=== PATIENT | female | born 1980 | race Caucasian/White ===

== ENCOUNTER → 2020-08-26 13:32 | Outpatient (BNVA) | payer OTHER, SELFPAY | PROVIDERS: PCP Internal Medicine; Visit Provider Internal Medicine Endocrinology, Diabetes & Metabolism ==

== ENCOUNTER 2020-10-02 15:41 | Outpatient (REF) | payer OTHER, SELFPAY ==
--- NOTE | ~2020-10-02 | CT_ITS ---
EXAMINATION: CT HEAD WITHOUT CONTRAST CLINICAL INFORMATION: Migraine with aura. COMPARISON: None TECHNIQUE: Contiguous axial imaging was performed from the skull base to vertex without intravenous administration of contrast. This CT examination was performed using dose optimization techniques as appropriate, variously including the following: *Automated exposure control *Adjustment of mA and/or kV according to patient size (this includes techniques or standardized protocols for targeted exams where dose is matched to indication/reason for exam; i.e. extremities or head) *Use of iterative reconstruction technique DLP: 832 mGy-cm FINDINGS: There is no evidence of acute intracranial hemorrhage or territorial infarction. No abnormal mass effect or midline shift is seen. [place] to white matter differentiation is well preserved. No extra-axial fluid collections are identified. The ventricles are normal in size. There is no abnormal attenuation within the brain parenchyma. The osseous structures and soft tissues are normal. The mastoid air cells and visualized portions of the paranasal sinuses are well aerated. CT/CT head/brain wo IV con IMPRESSION: No acute intracranial pathology. Normal CT scan of the head.
== END 2020-10-02 15:42 | disposition home or self-care (01) ==
LOC: HO.CT 15:41
PROVIDERS: PCP Internal Medicine; Visit Provider Physician Assistant
DX: G43.109 Migraine with aura, not intractable, without status migrainosus (principal); R07.89 Other chest pain
CPT/HCPCS: 70450

== ENCOUNTER 2020-10-06 14:26 | Outpatient (REF) | payer OTHER, SELFPAY ==
[2020-10-06 18:55] LABS: Alanine Aminotransferase 17 U/L (0-31); Albumin Level 4.8 g/dL (3.5-5.0); Alkaline Phosphatase 69 U/L (39-117); Anion Gap 16 (12-20); Aspartate Amino Transferase 12 U/L (5-31); Bilirubin Total 0.9 mg/dL (0.0-1.0); Blood Urea Nitrogen 10 mg/dL (9-16); Calcium 9.7 mg/dL (8.4-10.2); Carbon Dioxide 28 mmol/L (22-29); Chloride 100 mmol/L (96-108); Estimated Glomerular Filt Rate > 60; Glucose Random 115 mg/dL (60-115); Magnesium 1.6 mg/dL (1.6-2.6); Potassium 3.1 mmol/L (3.3-5.1); Sodium 141 mmol/L (135-145); Total Protein 7.5 g/dL (6.5-8.0)
[2020-10-06 19:15] LABS: Free T4 (Free Thyroxine) 1.05 ng/dL (0.71-1.85); Thyroid Stimulating Hormone 1.03 uIU/mL (0.32-4.0)
[2020-10-07 06:48] LABS: Estimated Average Glucose 103 mg/dL; Hemoglobin A1c % 5.2 %
[2020-10-08 12:44] LABS: Lyme Abs Screen <0.90 index
== END 2020-10-06 14:27 | disposition home or self-care (01) ==
LOC: HO.MANLDS 14:26
PROVIDERS: PCP Internal Medicine; Visit Provider Physician Assistant
DX: R73.01 Impaired fasting glucose (principal); R53.83 Other fatigue; E83.42 Hypomagnesemia
CPT/HCPCS: 36415; 80053; 83036; 83735; 84439; 84443; 86617; 86618

== ENCOUNTER 2020-10-20 16:07 | Outpatient (REF) | payer OTHER, SELFPAY ==
[2020-10-20 19:30] LABS: Anion Gap 15 (12-20); Blood Urea Nitrogen 15 mg/dL (9-16); Carbon Dioxide 25 mmol/L (22-29); Chloride 104 mmol/L (96-108); Estimated Glomerular Filt Rate > 60; Glucose Random 73 mg/dL (60-115); Potassium 3.6 mmol/L (3.3-5.1); Sodium 140 mmol/L (135-145)
== END 2020-10-20 16:08 | disposition home or self-care (01) ==
LOC: HO.MANLDS 16:07
PROVIDERS: PCP Internal Medicine; Visit Provider Internal Medicine
DX: I10 Essential (primary) hypertension (principal)
CPT/HCPCS: 36415; 80048

== ENCOUNTER 2020-10-30 11:53 | Emergency (ER) | payer OTHER, SELFPAY ==
[2020-10-30 13:44] VITALS: BP 134/91; PULSE 87; RESP 18; TEMP 37; O2SAT 98; BMI 44.1
--- NOTE | 2020-10-30 13:47 | ECG_ITS ---
Test Reason : CHEST PAIN Blood Pressure : / mmHG Vent. Rate : 084 BPM Atrial Rate : 084 BPM P-R Int : 150 ms QRS Dur : 082 ms QT Int : 386 ms P-R-T Axes : 024 -45 023 degrees QTc Int : 456 ms Normal sinus rhythm Left anterior fascicular block Abnormal ECG No previous ECGs available Referred By: Generic ED Physician Electronically Signed By:Luciano Agustin
[2020-10-30 14:24] LABS: MANUAL DIFF FLAG NO
[2020-10-30 14:33] LABS: Basophils Percent Auto 0.3 % (0-2); Eosinophils Percent Auto 0.1 % (0-4); Hematocrit 38.2 % (37-47); Hemoglobin 13.6 g/dl (12.0-16.0); Imm Gran Abs Auto 0.09 X10*3/uL (0.00-0.03); Imm Gran Pct Auto 0.9 % (0.0-0.4); Lymphocytes Absolute Auto 1.3 X10*3/uL (1.2-4.9); Lymphocytes Percent Auto 12.7 % (20-40); Mean Corpuscular HGB Conc 35.6 g/dl (31.0-35.0); Mean Corpuscular Volume 84.3 fL (80-98); Mean Platelet Volume 9.5 fL (9.4-12.3); Monocytes Absolute Auto 0.4 X10*3/uL (0.1-1.2); Monocytes Percent Auto 3.9 % (2-11); Neutrophils Absolute Auto 8.7 X10*3/uL (2.0-8.3); Neutrophils Percent Auto 82.1 % (45-73); Platelet Count 239 X10*3/uL (160-400); Red Blood Count 4.53 X10*6/uL (4.20-5.50); Red Cell Distribution Width 12.4 % (11.0-16.0); White Blood Count 10.5 X10*3/uL (4.8-10.8)
[2020-10-30 14:59] LABS: Alanine Aminotransferase 26 U/L (0-31); Albumin Level 4.4 g/dL (3.5-5.0); Alkaline Phosphatase 61 U/L (39-117); Anion Gap 15 (12-20); Aspartate Amino Transferase 20 U/L (5-31); Bilirubin Direct 0.3 mg/dL (0.0-0.5); Blood Urea Nitrogen 12 mg/dL (9-16); Carbon Dioxide 25 mmol/L (22-29); Chloride 107 mmol/L (96-108); Creatinine Clr Calc Pharmacy 107.7; Estimated Glomerular Filt Rate > 60; Glucose Random 122 mg/dL (60-115); Lipase 24 U/L (8-78); Potassium 4.2 mmol/L (3.3-5.1); Sodium 143 mmol/L (135-145); Total Protein 6.8 g/dL (6.5-8.0)
[2020-10-30 18:13] LABS: Glucose, Whole Blood 129 mg/dL (60-115)
--- NOTE | 2020-10-30 19:00 | ED.GENADULT ---
HPI - General Adult General Chief complaint: Nausea/Vomiting/Diarrhea Stated complaint: Chest Pain Time Seen by Provider: 10/30/20 18:47 Source: patient Mode of arrival: ambulatory Limitations: no limitations History of Present Illness HPI narrative: Patient comes emergency room with multiple complaints. Patient states that she has been vomiting for 2 days. Patient states she has been unable to keep any fluids down. Therefore, patient has not been able to keep down her meds as well including her blood pressure medications. Patient reports a blood pressure at home of 173/129 right after she vomited. On arrival to triage, blood pressure is 134/91. Patient complaining of a migraine headache. Patient states she use Phenergan suppositories without relief. Patient also complaining of chest pressure Related Data Home Medications Medication Instructions Recorded Confirmed metoprolol tartrate 25 mg tablet 50 mg PO DAILY tab 08/26/20 08/26/20 pregabalin 200 mg capsule 200 mg PO TID 08/26/20 08/26/20 Previous Rx's Medication Instructions Recorded ondansetron HCl [Zofran] 4 mg PO Q6H PRN #14 tab 10/30/20 Allergies Allergy/AdvReac Type Severity Reaction Status Date / Time codeine Allergy Unknown Anaphylaxis Verified 10/30/20 13:44 Penicillins [PCN] Allergy Unknown ANAPHYLAXIS Verified 10/30/20 13:44 Sulfa (Sulfonamide Allergy Unknown ANAPHYLAXIS Verified 10/30/20 13:44 Antibiotics) [SULFA (SULFONAMIDE ANTIBIOTICS)] [facility], LAT[facility] Past Medical History Medical History (Updated 10/30/20 @ 23:13 by Lisa Oakley MD) Acute Lyme disease [place]'s disease Morbid obesity Surgical History (Updated 08/26/20 @ 12:01 by GOLDIE Clifton) History of back surgery Hx of cholecystectomy Hx of discectomy Hx of hysterectomy Hx of tonsillectomy Hx of tubal ligation S/P wisdom tooth extraction Family History Family History (Updated 08/26/20 @ 11:56 by GOLDIE Clifton) Father No problems noted. Mother Asthma Fibromyalgia Arthritis of knee Social History Social History (Updated 08/26/20 @ 11:50 by GOLDIE Clifton) Household Members: Family Alcohol intake: never Patient Tobacco Use Status: Never used Tobacco Use of substances other than those prescribed or required for medical reasons: No Advance Directives: Yes Advance Directives Information Provided: Yes Advance Directives on File: No Patient : No Physical Exam Vital Signs: Vital Signs: Last Vital Signs Temp 98.6 F 10/30/20 13:44 Pulse 78 10/30/20 21:23 Resp 16 10/30/20 21:23 BP 130/84 10/30/20 21:23 Pulse Ox 98 10/30/20 21:23 Body Mass Index 44.1 Course Course Course Narrative: I discussed the labs with the patient. Is likely that patient's symptoms are due to a viral syndrome, versus I am disease for which she is being treated, versus opiate withdrawal. Patient receive her home dose of opioids here in the ED, patient received IV hydration and antiemetic medication. Patient states she feels better. Patient was p.o. challenged and did well. Blood pressure on discharge 130/84, rate 78 Medical Decision Making Lab Data Result diagrams: 10/30/20 14:19 10/30/20 14:19 Labs: Lab Results 10/30/20 10/30/20 10/30/20 Range/Units 14:15 14:19 14:19 WBC 10.5 (4.8-10.8) X10*3/uL RBC 4.53 (4.20-5.50) X10*6/uL Hgb 13.6 (12.0-16.0) g/dl Hct 38.2 (37-47) % MCV 84.3 (80-98) fL MCH 30.0 (27.0-33.0) pg MCHC 35.6 H (31.0-35.0) g/dl RDW 12.4 (11.0-16.0) % Plt Count 239 (160-400) X10*3/uL MPV 9.5 (9.4-12.3) fL Immature Gran % (Auto) 0.9 H (0.0-0.4) % Neut % (Auto) 82.1 H (45-73) % Lymph % (Auto) 12.7 L (20-40) % [place] % (Auto) 3.9 (2-11) % Eos % (Auto) 0.1 (0-4) % Baso % (Auto) 0.3 (0-2) % Lymph # (Auto) 1.3 (1.2-4.9) X10*3/uL [place] # (Auto) 0.4 (0.1-1.2) X10*3/uL Eos # (Auto) 0.0 (0.0-0.4) X10*3/uL Baso # (Auto) 0.0 (0.0-0.2) X10*3/uL Abs Immat Gran (auto) 0.09 H (0.00-0.03) X10*3/uL Absolute Neuts (auto) 8.7 H (2.0-8.3) X10*3/uL Absolute Nucleated RBC 0.000 (0.0-0.012) X10*3/uL Nucleated RBC % (auto) 0.0 (0.0-0.2) /100WBC Sodium 143 (135-145) mmol/L Potassium 4.2 (3.3-5.1) mmol/L Chloride 107 (96-108) mmol/L Carbon Dioxide 25 (22-29) mmol/L Anion Gap 15 (12-20) BUN 12 (9-16) mg/dL Creatinine 0.92 (0.5-1.4) mg/dL Estim Creat Clear Calc 107.7 Estimated GFR > 60 POC Glucose 129 H (60-115) mg/dL Random Glucose 122 H D (60-115) mg/dL Calcium 10.0 D (8.4-10.2) mg/dL Total Bilirubin 1.0 (0.0-1.0) mg/dL Direct Bilirubin 0.3 (0.0-0.5) mg/dL AST 20 D (5-31) U/L ALT 26 (0-31) U/L Alkaline Phosphatase 61 (39-117) U/L Troponin I High Sens (<3.5-17.0) ng/L Total Protein 6.8 (6.5-8.0) g/dL Albumin 4.4 (3.5-5.0) g/dL Lipase 24 (8-78) U/L Urine Color Urine Appearance Urine pH (5.0-8.0) Ur Specific Malin (1.005-1.025) Urine Protein (NEG-TRACE) MG/DL Urine Glucose (UA) (NEG) MG/DL Urine Ketones (NEG) MG/DL Urine Blood (NEG) Urine Nitrite (NEG) Ur Leukocyte Esterase (NEG) Urine Test (NEGATIVE) 10/30/20 10/30/20 10/30/20 Range/Units 14:19 22:41 22:41 WBC (4.8-10.8) X10*3/uL RBC (4.20-5.50) X10*6/uL Hgb (12.0-16.0) g/dl Hct (37-47) % MCV (80-98) fL MCH (27.0-33.0) pg MCHC (31.0-35.0) g/dl RDW (11.0-16.0) % Plt Count (160-400) X10*3/uL MPV (9.4-12.3) fL Immature Gran % (Auto) (0.0-0.4) % Neut % (Auto) (45-73) % Lymph % (Auto) (20-40) % [place] % (Auto) (2-11) % Eos % (Auto) (0-4) % Baso % (Auto) (0-2) % Lymph # (Auto) (1.2-4.9) X10*3/uL [place] # (Auto) (0.1-1.2) X10*3/uL Eos # (Auto) (0.0-0.4) X10*3/uL Baso # (Auto) (0.0-0.2) X10*3/uL Abs Immat Gran (auto) (0.00-0.03) X10*3/uL Absolute Neuts (auto) (2.0-8.3) X10*3/uL Absolute Nucleated RBC (0.0-0.012) X10*3/uL Nucleated RBC % (auto) (0.0-0.2) /100WBC Sodium (135-145) mmol/L Potassium (3.3-5.1) mmol/L Chloride (96-108) mmol/L Carbon Dioxide (22-29) mmol/L Anion Gap (12-20) BUN (9-16) mg/dL Creatinine (0.5-1.4) mg/dL Estim Creat Clear Calc Estimated GFR POC Glucose (60-115) mg/dL Random Glucose (60-115) mg/dL Calcium (8.4-10.2) mg/dL Total Bilirubin (0.0-1.0) mg/dL Direct Bilirubin (0.0-0.5) mg/dL AST (5-31) U/L ALT (0-31) U/L Alkaline Phosphatase (39-117) U/L Troponin I High Sens < 3.5 (<3.5-17.0) ng/L Total Protein (6.5-8.0) g/dL Albumin (3.5-5.0) g/dL Lipase (8-78) U/L Urine Color DARK YELLOW Urine Appearance CLEAR Urine pH 6.0 (5.0-8.0) Ur Specific Malin >= 1.030 H (1.005-1.025) Urine Protein NEG (NEG-TRACE) MG/DL Urine Glucose (UA) NEG (NEG) MG/DL Urine Ketones 15 (NEG) MG/DL Urine Blood NEG (NEG) Urine Nitrite NEG (NEG) Ur Leukocyte Esterase NEG (NEG) Urine Test NEGATIVE (NEGATIVE) ECG Data Attestation: I personally reviewed and interpreted this ECG as follows: (Normal sinus rhythm, heart rate 84, no ST segment depression or elevation, to inversion, QTC 456) Discharge Plan Discharge Clinical Impression: Vomiting, Opiate withdrawal Patient Disposition: Home, Self-Care Instructions: Acute Nausea and Vomiting (ED), Opioid Withdrawal (ED) Additional Instructions: Continue taking your antibiotics as indicated. Make sure you drink a full glass of water after swallowing the antibiotic. Please follow-up with your primary care physician tomorrow. If you have any worsening or new symptoms, please return to the emergency room or call 911 Prescriptions: New ondansetron HCl [Zofran] 4 mg tablet 4 mg PO Q6H PRN (Reason: nausea and vomiting) Qty: 14 RF: 0 No Action pregabalin 200 mg capsule 200 mg PO TID RF: 0 metoprolol tartrate 25 mg tablet 50 mg PO DAILY RF: 0
[2020-10-30 20:05] LABS: Troponin-I High Sensitivity < 3.5 ng/L (<3.5-17.0)
[2020-10-30 20:23] VITALS: BP 134/88; PULSE 78; RESP 16; O2SAT 95
[2020-10-30 20:50] VITALS: RESP 16
[2020-10-30] MEDS: Morphine Sulfate 4 MG/ML CARTRIDGE IVPUSH (20:50)
[2020-10-30] MEDS: 0.9 % Sodium Chloride 1,000 ML 999 ML IVCONT (20:52)
[2020-10-30] MEDS: Metoclopramide HCl 10 MG/2 ML VIAL IVPUSH (20:54)
[2020-10-30] MEDS: Prochlorperazine Edisylate 10 MG/2 ML VIAL IVPUSH (20:56)
[2020-10-30] MEDS: Aspirin Enteric Coated 325 MG TABLET.DR PO (20:57)
[2020-10-30 21:22] VITALS: BP 130/84; PULSE 78; RESP 16
[2020-10-30 21:23] VITALS: BP 130/84; PULSE 78; RESP 16; O2SAT 98
--- NOTE | 2020-10-30 22:47 | PC.NURSE ---
PT UPRIGHT IN BED, SUCCESSFUL PO CHALLENGE, PT IN NAD, AWAITING LAB RESULTS AND DISPO.
[2020-10-30 22:49] LABS: Glucose Urine UA NEG (NEG); Leukocyte Esterase Urine NEG (NEG); Nitrite Urine NEG (NEG); Specific Gravity - Urine >= 1.030 (1.005-1.025); Urine Blood NEG (NEG); Urine Ketones 15 MG/DL (NEG); Urine Protein NEG (NEG-TRACE)
[2020-10-30 22:55] LABS: Appearance Urine CLEAR; Color Urine DARK YELLOW
[2020-10-30 22:56] LABS: UPreg QC Valid YES; Urine Pregnancy NEGATIVE (NEGATIVE)
[2020-10-30] MEDS: oxyCODONE HCl Immed Release 15 MG TABLET 20 MG PO (23:37)
[2020-11-01 00:24] LABS: Glucose, Whole Blood 104 mg/dL (60-115)
== END 2020-10-30 23:30 | disposition home or self-care (01) ==
PROVIDERS: Emergency Provider Emergency Medicine; PCP Internal Medicine
DX: R11.10 Vomiting, unspecified (principal); F11.93 Opioid use, unspecified with withdrawal
CPT/HCPCS: 36415; 80048; 80076; 81003; 81025; 82947; 83690; 84484; 85025; 93005; 96361; 96374; 96375; 99284; 99285; J2270; J2765

== ENCOUNTER → 2020-11-19 08:30 | Outpatient (REF) | payer OTHER, SELFPAY ==
--- NOTE | 2020-11-19 08:33 | CA_ITS ---
Transthoracic Echocardiogram Patient (Last, First, Middle): Cayla Mendoza C Gender: Female Date of : 1980 Age: 40 Procedure Date: 11/19/2020 Procedure Type: Transthoracic Echocardiogram Location: OP Height: 165.1 cm Weight: 115.21 kg BSA: 2.19 m2 Heart Rate: bpm BP: 106 / 68 mmHg Inspector Watch Assembly: JEET Lane MD: Peg ARANA Sand Blaster: Jose Lundberg MD Symptoms: [id number] Study Quality: Good ECG Rhythm: Sinus Conclusions: - Normal study Findings Left Ventricle Normal left ventricular size, thickness, and systolic function. The visually estimated ejection fraction is between 60-65%. Diastolic function is normal for age. Right Ventricle Normal right ventricular cavity size and systolic function. Atria Both atria are normal in size. There is no evidence of interatrial shunt. Aortic Valve Normal aortic valve structure and function. There is no aortic valve stenosis. There is no aortic valve regurgitation. Mitral Valve Normal mitral valve structure and function. There is no mitral valve regurgitation. There is no mitral valve stenosis. Pulmonic Valve The pulmonic valve is likely normal. There is trace pulmonic valve regurgitation. Tricuspid Valve Normal tricuspid valve structure. There is trace tricuspid valve regurgitation. The right ventricular systolic pressure is normal. The right ventricular systolic pressure is 25 mmHg. Normal right atrial pressure. There is no evidence of pulmonary hypertension. Great Vessels All visible segments of the aorta are normal in size. The pulmonary artery was not well visualized. Venous The inferior vena cava is normal in size and collapses greater than 50% with inspiration. Pericardium/Pleural There is no evidence of pericardial effusion. Prior Study Comparison No prior study available for comparison. Measurements 2D Linear Measurements RVIDd: 2.45 RVIDd Index: 1.12 IVSd: 1.13 0.6-0.9/0.6-1.0 cm LVIDd: 5.10 3.9-5.3/4.2-5.9 cm LVIDd Index: 2.33 2.4-3.2/2.2-3.1 cm/m2 LVIDs: 3.13 2.0-3.6 cm LVPWd: 1.19 0.7-1.1 cm Ao Root: 3.20 2.1-3.5 cm LA Diam: 3.50 2.7-3.8/3.0-4.0 cm LAIDs Index: 1.60 1.5-2.3 cm/m2 LV Mass: 286.90 67-162/88-224 g LV Mass Index: 131.01 43-95/49-115 g/m2 LVOT Diam: 2.30 3.0+(-)1.3 cm 2D Systolic Function EF 4C: 63.80 >55% EF 2C: 67.40 >55% EF BiP: 64.20 >55% Mitral Valve MV Pk E: 0.69 MV PK A: 0.58 MV Decel Time: 180.00 E/A: 1.20 E'Lateral: 12.70 E'Medial: 7.29 E/E' Med: 9.50 E/E' Lat: 5.40 Aortic Valve AoV Pk Crispin: 1.32 AoV Mn Crispin: 1.01 AoV VTI: 0.27 AoV Pk Grad: 7.00 Aov Mn Grad: 4.00 PA Cont.VTI: 3.41 LVOT LVOT Pk Crispin: 1.08 LVOT Mn Crispin: 0.77 LVOT VTI: 0.22 LVOT Pk Grad: 5.00 LVOT Mn Grad: 3.00 LVOT Diam: 2.30 LVOT Area: 4.15 Diastolic Function MV Pk E: 0.69 MV Pk A: 0.58 E/A: 1.20 E'Medial: 7.29 E/E' Med: 9.50 E' Laterial: 12.70 E/E' Lat: 5.40 Tricuspid Valve TR Pk Crispin: 2.35 TR Pk Grad: 22.00 RA Press: 3.00 RVSP: 25.00 Great Vessels Aorta Ao Root-2D: 3.20 2.0-3.7 cm Ao Asc: 3.30 2.1-3.4 cm Ao Arch: 2.60 Updated in Other Vendor System with Status of Final Jose Lundberg MD electronically signed on 11/19/2020 5:42:41 PM with status of Final
--- NOTE | 2020-11-19 08:34 | CA_ITS ---
Acquisition Time: 2020-11-19 09:27:53 Total Exercise Time: 00:06:25 Test Indications: CP, Medications: SEE CHART Protocol: COLBY Max HR: 136 BPM 74% of Pred: 182 BPM Max BP: 120/090 mmHG Max Work Load: 7.6 METS Exercise stress test with exercise 6 min 25 sec of Colby protocol, with report of throat and jaw discomfort, moderate shortness of breath and lightheadedness, without arrythmia, with blunted BP response to exercise, with nondiagnostic EKG for ischemia due to suboptimal heart rate. In recovery her symptoms gradually resolved. Test reviewed with Dr Agustin. Referred By: Peg Burnham Overread By: KATY KATZ
== END ==
LOC: HO.CARD 08:30
PROVIDERS: Visit Provider Physician Assistant
DX: R06.09 Other forms of dyspnea (principal)
CPT/HCPCS: 93017; 93306

== ENCOUNTER 2021-11-10 11:57 | Outpatient (REF) | payer SELFPAY ==
[2021-11-10 13:47] LABS: Erythrocyte Sedimentation Rate 7 MM/HR (0-20)
[2021-11-10 13:50] LABS: C Reactive Protein 0.98 mg/dL (< or = 0.50); Rheumatoid Factor < 15.0 IU/mL (<15.0)
[2021-11-10 14:05] LABS: Estimated Average Glucose 105 mg/dL; Hemoglobin A1c % 5.3 %
[2021-11-12 14:07] LABS: Anti Nuclear Antibody Screen NEGATIVE (NEGATIVE)
[2021-11-12 16:41] LABS: Cyclic Citrullinated Peptide <16 UNITS
== END 2021-11-10 11:58 | disposition home or self-care (01) ==
LOC: HO.MANLDS 11:57
PROVIDERS: Visit Provider Physician Assistant
DX: M25.50 Pain in unspecified joint (principal)
CPT/HCPCS: 36415; 83036; 85652; 86038; 86039; 86140; 86200; 86431

== ENCOUNTER 2022-03-01 14:52 | Outpatient (REF) | payer BC, SELFPAY ==
[2022-03-01 18:21] LABS: Appearance Urine Turbid; Color Urine Yellow; Glucose Urine UA Negative (Negative); Leukocyte Esterase Urine Large (3+) (Negative); Nitrite Urine Negative (Negative); PH 5.5 (5.0-9.0); Specific Gravity - Urine 1.015 (1.005-1.025); UMIC TRIGGER UACC YES; Urine Blood Large (3+) (Negative); Urine Ketones Negative (Negative); Urine Protein 30 (1+) mg/dL (Neg-Trace)
[2022-03-01 18:26] LABS: Bacteria Urine 4+ (None Seen); Hyaline Casts Urine 0-2 /LPF (0-2); RBC Urine >20 /HPF (0-2); Squamous Epithelial Cell Urine 0-2 /HPF (0-2); UACC Culture Trigger YES; WBC Urine >50 /HPF (0-5)
== END 2022-03-01 14:53 | disposition home or self-care (01) ==
LOC: HO.MANLDS 14:52
PROVIDERS: Visit Provider Internal Medicine
DX: N39.0 Urinary tract infection, site not specified (principal)
CPT/HCPCS: 81001; 87086; 87088; 87186

== ENCOUNTER 2022-03-11 12:38 | Outpatient (REF) | payer BC, SELFPAY ==
--- NOTE | ~2022-03-11 | CT_ITS ---
EXAMINATION: CT HEAD WITHOUT CONTRAST CLINICAL INFORMATION: Amnesia COMPARISON: None TECHNIQUE: Contiguous axial imaging was performed from the skull base to vertex without intravenous administration of contrast. This CT examination was performed using dose optimization techniques as appropriate, variously including the following: *Automated exposure control *Adjustment of mA and/or kV according to patient size (this includes techniques or standardized protocols for targeted exams where dose is matched to indication/reason for exam; i.e. extremities or head) *Use of iterative reconstruction technique DLP: 802 mGy-cm FINDINGS: There is no acute intra-axial, extra-axial bleed, masses or midline shift. There is no acute infarction in evolution. The [place] to white matter differentiation is maintained normal. The lateral ventricles are symmetrical in size and configuration without enlargement. Bone windows reveal no calvarial abnormality. There is no scalp soft tissue abnormality. Bilateral paranasal sinuses and mastoid air cells are well-aerated CT/CT head/brain wo IV con IMPRESSION: No acute intracranial process seen.
== END 2022-03-11 12:39 | disposition home or self-care (01) ==
LOC: HO.CT 12:38
PROVIDERS: PCP Internal Medicine; Visit Provider Physician Assistant
DX: R41.3 Other amnesia (principal)
CPT/HCPCS: 70450

== ENCOUNTER → 2023-12-12 13:36 | Outpatient (REF) | payer BC, SELFPAY ==
--- NOTE | 2023-12-12 14:08 | CA_ITS ---
Transthoracic Echocardiogram Patient (Last, First, Middle): Cayla Mendoza C Gender: Female Date of : 1980 Age: 43 Procedure Date: 12/12/2023 Procedure Type: Transthoracic Echocardiogram Location: OP Height: 167. cm Weight: 133.81 kg BSA: 2.35 m2 Heart Rate: bpm BP: 125 / 85 mmHg Operation Manager: CRISTO Lane MD: Adarsh Haney MD Clipper And Turner: Jose Lundberg MD Symptoms: PULMONARY HTN Study Quality: Fair ECG Rhythm: Sinus Conclusions: - 1. Normal LV ejection fraction 60 65% with normal diastolic function 2. Trivial aortic and mitral regurgitation 3. Normal RV systolic pressure 4. No gross pericardial effusion Findings Left Ventricle Normal left ventricular size, thickness, and systolic function. The visually estimated ejection fraction is between 60-65%. Spectral Doppler is indicative of a normal filling pattern. Peak GLS is -20.4%, within normal limits. Right Ventricle Normal right ventricular cavity size and systolic function. Atria The left atrium is likely dilated. There is lipomatous hypertrophy of the interatrial septum. There is no evidence of interatrial shunt. The right atrium is normal in size. Aortic Valve Normal aortic valve structure and function. There is no aortic valve stenosis. There is trace (trivial) aortic valve regurgitation. Mitral Valve Normal mitral valve structure and function. There is mild mitral valve regurgitation. There is no mitral valve stenosis. Pulmonic Valve The pulmonic valve is likely normal. Tricuspid Valve Normal tricuspid valve structure. There is trace tricuspid valve regurgitation. The right ventricular systolic pressure is normal. The right ventricular systolic pressure is 26 mmHg. Normal right atrial pressure. There is no evidence of pulmonary hypertension. Great Vessels The pulmonary artery was not well visualized. There is no dilatation of the ascending aorta measuring 3.30 cm. Venous The inferior vena cava is mildly dilated and collapses greater than 50% with inspiration. Pericardium/Pleural There is no evidence of pericardial effusion. Prior Study Comparison No significant change compared to prior study dated: 11/19/2020. Measurements 2D Linear Measurements IVSd: 1.16 0.6-0.9/0.6-1.0 cm LVIDd: 4.00 3.9-5.3/4.2-5.9 cm LVIDd Index: 1.70 2.4-3.2/2.2-3.1 cm/m2 LVIDs: 2.43 2.0-3.6 cm LVPWd: 0.98 0.7-1.1 cm LA Diam: 3.50 2.7-3.8/3.0-4.0 cm LAIDs Index: 1.49 1.5-2.3 cm/m2 LV Mass: 174.53 67-162/88-224 g LV Mass Index: 74.27 43-95/49-115 g/m2 LVOT Diam: 2.20 3.0+(-)1.3 cm Mitral Valve MV Pk E: 1.04 MV PK A: 0.81 MV Decel Time: 269.00 E/A: 1.30 E'Lateral: 13.50 E'Medial: 8.05 E/E' Med: 12.90 E/E' Lat: 7.70 PHT: 79.00 MVA PHT: 2.78 Decel [place]wey: 3.87 Aortic Valve AoV Pk Crispin: 1.16 AoV Mn Crispin: 0.80 AoV VTI: 0.26 AoV Pk Grad: 5.00 Aov Mn Grad: 3.00 PA Cont.VTI: 3.53 LVOT LVOT Pk Crispin: 1.06 LVOT Mn Crispin: 0.80 LVOT VTI: 0.24 LVOT Pk Grad: 4.00 LVOT Mn Grad: 3.00 LVOT Diam: 2.20 LVOT Area: 3.80 Diastolic Function MV Pk E: 1.04 MV Pk A: 0.81 E/A: 1.30 E'Medial: 8.05 E/E' Med: 12.90 E' Laterial: 13.50 E/E' Lat: 7.70 Right Ventricle TAPSE (mm): 22.60 TVS' Crispin: 11.40 Tricuspid Valve TR Pk Crispin: 2.42 TR Pk Grad: 23.00 RA Press: 3.00 RVSP: 26.00 Great Vessels Aorta Sinus of Valsalva: 3.50 2.0-3.5 cm Ao Asc: 3.30 2.1-3.4 cm Pulmonary Valve PV Pk Crispin: 0.76 Peak PV Grad: 2.00 Updated in Other Vendor System with Status of Final Jose Lundberg MD electronically signed on 12/12/2023 5:11:07 PM with status of Final
== END ==
LOC: HO.CARD 13:36
PROVIDERS: PCP Internal Medicine; Visit Provider Internal Medicine
DX: I27.20 Pulmonary hypertension, unspecified (principal)
CPT/HCPCS: 93306; 93356

== ENCOUNTER → 2023-12-12 14:08 | Outpatient (BNV) | payer BC, SELFPAY | PROVIDERS: PCP Internal Medicine; Visit Provider Internal Medicine Cardiovascular Disease | DX: I34.0 Nonrheumatic mitral (valve) insufficiency (principal); I35.1 Nonrheumatic aortic (valve) insufficiency | CPT/HCPCS: 93306; 93356 ==